=== PATIENT | male | born 1950 | race African-American/Black ===

== ENCOUNTER 2022-09-17 07:36 | Day surgery (SDC) | payer OTHER ==
[2022-09-16 09:59] VITALS: BMI 30.7
[2022-09-17] MEDS ORDERED: PROPOFOL 120 ML ONE (07:45)
[2022-09-17] MEDS ORDERED: LIDOCAINE HCL/PF 2% SDV 5ML VIAL ONE (07:45)
[2022-09-17 08:02] VITALS: TEMP 98.2
[2022-09-17 08:08] VITALS: RESP 18
[2022-09-17 09:24] VITALS: BP 103/53; PULSE 66
== END 2022-09-17 09:30 | disposition home or self-care (01) ==
LOC: FASU-ENDO 07:36
PROVIDERS: ATTEND Internal Medicine Gastroenterology
PROC: 0DJD8ZZ Inspection of Lower Intestinal Tract, Via Natural or Artificial Opening Endoscopic (ICD-10-PCS; principal; 2022-09-17 08:36)
DX: Z12.11 Encounter for screening for malignant neoplasm of colon (principal); K57.30 Diverticulosis of large intestine without perforation or abscess without bleeding
CPT/HCPCS: 82962